=== PATIENT | male | born 1980 | race Caucasian/White ===

== ENCOUNTER 2017-09-16 09:35 | Emergency (ER) | payer OTHER ==
[2017-09-16] MEDS: Ondansetron 4 MG/2 ML SDV IVPUSH ONE (10:16)
[2017-09-16] MEDS: Morphine 10 MG/ML Syringe IVPUSH ONE (10:16)
[2017-09-16] MEDS: Sodium Chloride 0.9% 10 ML Syringe FLUSH PRN (10:18)
[2017-09-16] MEDS ORDERED: Bupivacaine 0.5% 10 ML SDV INJECT ONE (10:25)
--- NOTE | 2017-09-16 11:07 | EDM.PDOC ---
ED HPI GENERAL MEDICAL PROBLEM - General Chief Complaint: Upper Extremity Injury/Pain Stated Complaint: SMASHED MY FINGER Time Seen by Provider: 09/16/17 09:50 Source of Information: Reports: Patient History Limitations: Reports: No Limitations - History of Present Illness INITIAL COMMENTS - FREE TEXT/NARRATIVE: Tip of right finger was caught under a piece of metal, crushed. Has some numbness of tip of finger. Bleeding controlled. Denies other injuries. Hand is otherwise ok. Right Middle 3-Middle finger Pain Score (Numeric/FACES): 7 - Related Data Allergies Allergy/AdvReac Type Severity Reaction Status Date / Time No Known Allergies Allergy Verified 09/16/17 11:08 Home Meds: Home Meds . [No Known Home Meds] 09/16/17 [History] Cephalexin [Keflex] 500 mg PO Q8H #21 cap 09/16/17 [Rx] traMADol [Ultram] 50 mg PO Q6H PRN #16 tab 09/16/17 [Rx] Past Medical History - Past Health History Medical/Surgical History: Denies Medical/Surgical History Review of Systems - Review of Systems Review Of Systems: ROS reveals no pertinent complaints other than HPI. ED EXAM, GENERAL - Physical Exam Exam: See Below Exam Limited By: No Limitations General Appearance: Alert, WD/WN, Mild Distress Eye Exam: Bilateral Eye: EOMI, PERRL Throat/Mouth: Normal Lips, Normal Voice, No Airway Compromise Head: Atraumatic, Normocephalic Neck: Supple Respiratory/Chest: No Respiratory Distress Peripheral Pulses: 2+: Radial (R) Extremities: Normal Capillary Refill, Other (Crush injury to tip of middle finger right hand. Some bruising under nail. Small amount nail disruption at base. Small laceration noted at base of nail same finger. Tendon function appears intact in involved finger and rest of fingers. Mild numbness tip of finger, but sensory intact remaining fingers. ) Neurological: Alert, Oriented, Normal Cognition, Normal Gait Psychiatric: Normal Affect, Normal Mood Skin Exam: Warm, Dry. No: Increased Warmth, Pallor Course - Vital Signs Last Recorded V/S: Last Vital Signs Temp 36.2 C 09/16/17 09:35 Pulse 82 09/16/17 09:35 Resp 14 09/16/17 09:35 BP 149/82 H 09/16/17 09:35 Pulse Ox 96 09/16/17 09:35 - Orders/Labs/Meds Orders: Active Orders 24 hr Category Date Time Status Fingers Third Digit Rt F7 [CR] Stat Exams 09/16/17 09:37 Ordered Saline Lock Insert [OM.PC] Routine Oth 09/16/17 10:00 Ordered Meds: Medications Discontinued Medications Generic Name Dose Route Start Last Admin Trade Name Freq PRN Reason Stop Dose Admin Bupivacaine HCl 10 ml 09/16/17 10:25 Sensorcaine-Mpf 0.5% INJECT 09/16/17 10:26 ONETIME ONE Lidocaine HCl 5 ml 09/16/17 10:25 Xylocaine-Mpf 1% INJECT 09/16/17 10:26 ONETIME ONE Morphine Sulfate 5 mg 09/16/17 09:59 09/16/17 10:16 Morphine IVPUSH 09/16/17 10:00 5 mg ONETIME ONE Administration Ondansetron HCl 4 mg 09/16/17 10:00 09/16/17 10:16 Zofran IVPUSH 09/16/17 10:01 4 mg ONETIME ONE Administration Sodium Chloride 10 ml 09/16/17 10:00 09/16/17 10:18 Saline Flush FLUSH 10 ml ASDIRECTED PRN Administration Keep Vein Open - Radiology Interpretation Free Text/Narrative:: Xray confirms small fractures of distal middle phalanx right hand. - Re-Assessments/Exams Free Text/Narrative Re-Assessment/Exam: 09/16/17 14:[address] and nonstick dressing/antibiotics applied over the area of injury. Not candidate for suturing. Wound care discussed. Wound recheck tomorrow or Thursday as well as Thursday. Wound care discussed Keflex will be given for the next week. Patient will check on tetanus status with his provider today or tomorrow. Will get shot updated Thursday if it has been 10+ years. Departure - Departure Time of Disposition: 11:02 Disposition: Home, Self-Care 01 Condition: Good Clinical Impression: Crushing injury of finger of right hand Open fracture of finger of right hand Qualifiers: Encounter type: initial encounter Finger: middle finger Phalanx: distal Fracture alignment: displaced Qualified Code(s): S62.632B - Displaced fracture of distal phalanx of right middle finger, initial encounter for open fracture - Discharge Information Prescriptions: Cephalexin [Keflex] 500 mg PO Q8H #21 cap traMADol [Ultram] 50 mg PO Q6H PRN #16 tab PRN Reason: Pain Referrals: PCP,Unknown [Ordering Only Provider] - Forms: ED Department Discharge Additional Instructions: Wound care as discussed. Recommend wound checks/dressing changes to make certain finger is healing well. Follow up either at [facility] or through us as an outpatient on Thursday (two days from now) as well as next Thursday. Future wound checks can be arranged on Thursday. Keep area protected. Follow up otherwise as needed if you have any problems develop. Check your tetanus shot status today or tomorrow. If it has been 10 years, we need you to have an update performed within the next 2 days (before the weekend) . OK to take Tylenol or Ibuprofen or Aleve with the Tramadol you were given for pain. - My Orders Last 24 Hours: My Active Orders 09/16/17 09:37 Fingers Third Digit Rt F7 [CR] Stat 09/16/17 10:00 Saline Lock Insert [OM.PC] Routine - Assessment/Plan Last 24 Hours: My Active Orders 09/16/17 09:37 Fingers Third Digit Rt F7 [CR] Stat 09/16/17 10:00 Saline Lock Insert [OM.PC] Routine
== END 2017-09-16 11:24 | disposition home or self-care (01) ==
LOC: LL.ED 09:35
DX: S67.192A Crushing injury of right middle finger, initial encounter (principal); S62.632B Displaced fracture of distal phalanx of right middle finger, initial encounter for open fracture; W23.1XXA Caught, crushed, jammed, or pinched between stationary objects, initial encounter
CPT/HCPCS: 73140-F7; 96374; 96375; 99283; J2270; J2405; J7050

== ENCOUNTER 2020-03-03 08:43 | Emergency (ER) | payer BC ==
[2020-03-03] MEDS ORDERED: Sodium Chloride 0.9% 10 ML Syringe FLUSH PRN (08:57)
[2020-03-03] MEDS ORDERED: Sodium Chloride 0.9% 1,000 ML IV SCH (09:00)
[2020-03-03 09:48] LABS: CHLORIDE,CL 99 mmol/L (98-107); SODIUM,NA 135 mmol/L (136-145)
[2020-03-03] MEDS ORDERED: Iopamidol 612 MG/ML 100 ML Bottle IVPUSH STA (10:03)
[2020-03-03] MEDS ORDERED: cefTRIAXone 1 GM in Sodium Chloride 0.9% 100 ML IV ONE (11:12)
--- NOTE | 2020-03-03 11:19 | EDM.PDOC ---
ED HPI GENERAL MEDICAL PROBLEM - General Chief Complaint: Abdominal Pain Stated Complaint: Fever, Abdominal Pain Time Seen by Provider: 03/03/20 09:00 Source of Information: Reports: Patient History Limitations: Reports: No Limitations - History of Present Illness INITIAL COMMENTS - FREE TEXT/NARRATIVE: Pt with fever and abdominal pain for several days Pt initially constipated and now with diarrhea No dysuria No trauma No travel hx No previous hx/o same Onset: Gradual Duration: Day(s): Location: Reports: Abdomen Quality: Reports: Ache Severity: Moderate Associated Symptoms: Reports: Fever/Chills, Nausea/Vomiting, Other (Diarrhea) Middle lower abdomin Pain Score (Numeric/FACES): 3 - Related Data Allergies Allergy/AdvReac Type Severity Reaction Status Date / Time No Known Allergies Allergy Verified 03/03/20 09:19 Home Meds: Home Meds . [No Known Home Meds] 09/16/17 [History] Past Medical History - Past Health History Medical/Surgical History: Denies Medical/Surgical History Social & Family History - Tobacco Use Tobacco Use Status *Q: Current Every Day Tobacco User Years of Tobacco use: 20 Packs/Tins Daily: 0.2 - Caffeine Use Caffeine Use: Reports: Coffee - Recreational Drug Use Recreational Drug Use: No ED ROS GENERAL - Review of Systems Review Of Systems: See Below Constitutional: Reports: Fever Respiratory: Reports: No Symptoms Cardiovascular: Reports: No Symptoms GI/Abdominal: Reports: Abdominal Pain, Diarrhea, Nausea Musculoskeletal: Reports: No Symptoms ED EXAM, GI/ABD - Physical Exam Exam: See Below Exam Limited By: No Limitations General Appearance: Alert, WD/WN, Moderate Distress Throat/Mouth: Normal Oropharynx Neck: Supple Respiratory/Chest: Lungs Clear Cardiovascular: Regular Rate, Rhythm GI/Abdominal Exam: Tender, Other (Tender diffusely) Extremities: Normal Inspection Neurological: Alert, Oriented, No Motor/Sensory Deficits Psychiatric: Normal Affect, Normal Mood Course - Vital Signs Last Recorded V/S: Last Vital Signs Temp 98.0 F 03/03/20 08:56 Pulse 101 H 03/03/20 08:56 Resp 20 03/03/20 08:56 BP 103/84 03/03/20 08:56 Pulse Ox 100 03/03/20 08:56 - Orders/Labs/Meds Orders: Active Orders 24 hr Category Date Time Status Abdomen Pelvis w Cont [CT] Stat Exams 03/03/20 09:46 Taken UA W/MICROSCOPIC [URIN] Stat Lab 03/03/20 08:56 Ordered Sodium Chloride 0.9% [Normal Saline] 1,000 ml Med 03/03/20 09:00 Active IV ASDIRECTED Sodium Chloride 0.9% [Saline Flush] Med 03/03/20 08:57 Active 10 ml FLUSH ASDIRECTED PRN cefTRIAXone [Rocephin] 1 gm Med 03/03/20 11:12 Ordered Sodium Chloride 0.9% [Normal Saline] 100 ml IV ONETIME Saline Lock Insert [OM.PC] Routine Oth 03/03/20 08:57 Ordered Medication Orders Sodium Chloride (Normal Saline) 1,000 mls @ 999 mls/hr IV ASDIRECTED NEELIMA Last Admin: 03/03/20 09:13 Dose: 999 mls/hr Documented by: MARINA Ceftriaxone Sodium 1 gm/ (Sodium Chloride) 100 mls @ 200 mls/hr IV ONETIME ONE Stop: 03/03/20 11:41 Sodium Chloride (Saline Flush) 10 ml FLUSH ASDIRECTED PRN PRN Reason: Keep Vein Open Labs: Laboratory Tests 03/03/20 03/03/20 03/03/20 Range/Units 09:05 09:10 09:10 WBC 10.1 (4.0-10.2) K/uL RBC 4.94 (4.33-5.41) M/uL Hgb 14.9 (13.1-16.8) g/dL Hct 44.8 (39.0-49.0) % MCV 90.7 (84.0-98.0) fL MCH 30.2 (28.2-33.3) pg MCHC 33.3 (31.7-36.0) g/dL RDW 12.2 (11.2-14.1) % Plt Count 211 (150-350) K/uL Neut % (Auto) 70.5 (45.0-80.0) % Lymph % (Auto) 18.8 (10.0-50.0) % [place] % (Auto) 9.2 (2.0-14.0) % Eos % (Auto) 1.2 (0.0-5.0) % Baso % (Auto) 0.3 (0.0-2.0) % Neut # (Auto) 7.14 H (1.40-7.00) K/uL Lymph # (Auto) 1.90 (0.50-3.50) K/uL [place] # (Auto) 0.93 (0.00-1.00) K/uL Eos # (Auto) 0.12 (0.00-0.50) K/uL Baso # (Auto) 0.03 (0.00-0.20) K/uL Sodium 135 L (136-145) mmol/L Potassium 4.1 (3.5-5.1) mmol/L Chloride 99 (98-107) mmol/L Carbon Dioxide 22.9 (21.0-32.0) mmol/L BUN 17 (7-18) mg/dL Creatinine 0.98 (0.51-1.17) mg/dL Est Cr Clr Drug Dosing 113.28 mL/min Estimated GFR (MDRD) > 60 mL/min Glucose 105 (74-106) mg/dL Calcium 9.4 (8.5-10.1) mg/dL Total Bilirubin 1.1 H (0.2-1.0) mg/dL AST 46 H (15-37) U/L ALT 65 (12-78) U/L Alkaline Phosphatase 120 H (46-116) IU/L Total Protein 8.5 H (6.4-8.2) g/dL Albumin 3.8 (3.4-5.0) g/dL SARS-CoV-2 RNA (HUONG) Negative (NEGATIVE) Meds: Medications Generic Name Dose Route Start Last Admin Trade Name Freq PRN Reason Stop Dose Admin Sodium Chloride 1,000 mls @ 999 mls/hr 03/03/20 09:00 03/03/20 09:13 Normal Saline IV 999 mls/hr ASDIRECTED NEELIMA Administration Ceftriaxone Sodium 1 gm/ 100 mls @ 200 mls/hr 03/03/20 11:12 Sodium Chloride IV 03/03/20 11:41 ONETIME ONE Sodium Chloride 10 ml 03/03/20 08:57 Saline Flush FLUSH ASDIRECTED PRN Keep Vein Open Discontinued Medications Generic Name Dose Route Start Last Admin Trade Name Freq PRN Reason Stop Dose Admin Iopamidol 100 ml 03/03/20 10:03 03/03/20 10:30 Isovue-300 (61%) IVPUSH 03/03/20 10:04 100 ml ONETIME STA Administration - Re-Assessments/Exams Free Text/Narrative Re-Assessment/Exam: 03/03/20 11:[address] per radiologist shows diverticulitis Pt given IVF and IV Rocephin in ER Departure - Departure Time of Disposition: 12:00 Disposition: Home, Self-Care 01 Clinical Impression: Diverticulitis - Discharge Information *PRESCRIPTION DRUG MONITORING PROGRAM REVIEWED*: Not Applicable *COPY OF PRESCRIPTION DRUG MONITORING REPORT IN PATIENT DINORA: Not Applicable Instructions: Diverticulitis, [id number] Referrals: Tiff Mujica NP [Primary Care Provider] - Additional Instructions: Follow up in clinic [place] diet Rx Cipro 500 mg BID for 10 days Sepsis Event Note (ED) - Evaluation Sepsis Screening Result: Possible Sepsis Risk - Focused Exam Vital Signs: Vital Signs Temp Pulse Resp BP Pulse Ox 03/03/20 08:56 98.0 F 101 H 20 103/84 100 - My Orders Last 24 Hours: My Active Orders 03/03/20 08:56 UA W/MICROSCOPIC [URIN] Stat 03/03/20 08:57 Sodium Chloride 0.9% [Saline Flush] 10 ml FLUSH ASDIRECTED PRN Saline Lock Insert [OM.PC] Routine 03/03/20 09:00 Sodium Chloride 0.9% [Normal Saline] 1,000 ml IV ASDIRECTED 03/03/20 09:46 Abdomen Pelvis w Cont [CT] Stat 03/03/20 11:12 cefTRIAXone [Rocephin] 1 gm Sodium Chloride 0.9% [Normal Saline] 100 ml IV ONETIME - Assessment/Plan Last 24 Hours: My Active Orders 03/03/20 08:56 UA W/MICROSCOPIC [URIN] Stat 03/03/20 08:57 Sodium Chloride 0.9% [Saline Flush] 10 ml FLUSH ASDIRECTED PRN Saline Lock Insert [OM.PC] Routine 03/03/20 09:00 Sodium Chloride 0.9% [Normal Saline] 1,000 ml IV ASDIRECTED 03/03/20 09:46 Abdomen Pelvis w Cont [CT] Stat 03/03/20 11:12 cefTRIAXone [Rocephin] 1 gm Sodium Chloride 0.9% [Normal Saline] 100 ml IV ONETIME
== END 2020-03-03 12:07 | disposition home or self-care (01) ==
LOC: LL.ED 08:43
DX: K57.32 Diverticulitis of large intestine without perforation or abscess without bleeding (principal); Z20.828 Contact with and (suspected) exposure to other viral communicable diseases; F17.210 Nicotine dependence, cigarettes, uncomplicated
CPT/HCPCS: 36415; 74177; 80053; 85025; 87635; 96365; 99284; J0696; J7030; Q9967; U0002